=== PATIENT | male | born 1950 | race Caucasian/White ===

== ENCOUNTER 2016-04-22 07:30 | Inpatient (IN) | payer OTHER ==
[~2016-04-22] VITALS: Ht 193 cm; Wt 102.4 kg
[~2016-04-22 07:30] MED LIST: ALLO100T64 PO; CAPT25TA71 PO; DOCU-29 PO; FINA5TAB4 PO; OXYB5TAB PO; PROPANOLOL PO; SIMV20TA2 PO; TAMS0.4C2 PO
[2016-06-10 15:41] VITALS: BMI 28.9
[2016-06-10 19:00] VITALS: BP 166/75; PULSE 64; RESP 18
[2016-06-11] VITALS (31 sets, daily range): BP systolic 127–178; BP diastolic 70–106; PULSE 50–98; RESP 16–20; Ht 193 cm; Wt 102.4 kg
[2016-06-11] MEDS ORDERED: CEFAZOLIN 1 GM INJ ONE (07:00)
[2016-06-11] MEDS ORDERED: ACET1TAB40 PO (11:14)
[2016-06-11] MEDS ORDERED: AMLO-145 PO (11:14)
[2016-06-11] MEDS ORDERED: CEFAZOLIN 1 GM/50 ML (PMX) 50 ML IVPB SCH (11:30)
--- NOTE | 2016-06-11 12:56 | HPN ---
Date/Time of Note Date/Time of Note DATE: 06/11/16 TIME: 12:56 Interval H&P Admission Note Pt. seen H&P reviewed: No system changes KARMA SAEED MD Jun 11, 2016 12:56
[2016-06-11] MEDS ORDERED: NALOXONE (0.4 MG/ML) INJ IV PRN ×2 (13:00→14:30)
[2016-06-11] MEDS ORDERED: POLYMYXIN B 500000 UNIT INJ ONE (13:02)
[2016-06-11] MEDS ORDERED: BACITRACIN 50000 UNITS INJ ONE (13:03)
[2016-06-11] MEDS ORDERED: FENTAnyl 50 MCG/ML VIAL ONE (13:03)
[2016-06-11] MEDS ORDERED: MIDAZOLAM 1 MG/ML 2 ML INJ ONE (13:03)
[2016-06-11] MEDS ORDERED: morphine SULFATE/PF (10 MG/10 ML) INJ ONE (13:04)
[2016-06-11] MEDS ORDERED: TRANEXAMIC ACID 2,000 MG in SOD CHLORIDE 0.9% 100 ML IV ONE (14:00)
[2016-06-11] MEDS ORDERED: POLYMYXIN/BACITRACIN 1L IRRIG ONE (14:07)
[2016-06-11] MEDS ORDERED: BACITRACIN/POLYMYXIN 28.35 GM OINT TOP ONE (14:24)
[2016-06-11] MEDS ORDERED: MEPERIDINE 25 MG INJ IV PRN (14:30)
[2016-06-11] MEDS ORDERED: ONDANSETRON 4 MG INJ IV PRN ×2 (14:30→19:30)
[2016-06-11] MEDS ORDERED: DIPHENHYDRAMINE 50 MG INJ IV PRN (14:30)
[2016-06-11] MEDS ORDERED: FENTAnyl 50 MCG/ML VIAL IV PRN (14:30)
[2016-06-11] MEDS ORDERED: HYDROmorphONE (0.2 MG/ML) 10ML SYG IV PRN ×2 (14:30)
[2016-06-11] MEDS ORDERED: ETOMIDATE 20 MG INJ ONE (15:09)
[2016-06-11] MEDS ORDERED: PROPOFOL 20 ML ONE (15:09)
[2016-06-11] MEDS ORDERED: ROCURONIUM 50 MG INJ ONE (15:10)
[2016-06-11] MEDS ORDERED: LIDOCAINE 2% (SDV) 5 ML INJ ONE (15:10)
[2016-06-11] MEDS ORDERED: ONDANSETRON 4 MG INJ ONE (15:10)
[2016-06-11] MEDS: CEFAZOLIN 1 GM/50 ML (PMX) 50 ML IVPB SCH ×2 (15:39→22:42)
--- NOTE | 2016-06-11 18:48 | QN ---
Documentation Comment [id number] SUSAN TEJEDA MD Jun 11, 2016 18:48
[2016-06-11] MEDS ORDERED: morphine 10 MG INJ IM PRN (19:30)
[2016-06-11] MEDS: morphine 2 MG INJ IV PRN ×2 (19:37→23:24)
[2016-06-11] MEDS: ACETAMINOPHEN/CODEINE #3 TAB PO SCH (21:04)
[2016-06-12] VITALS: BP 161/97; PULSE 60; RESP 18
[2016-06-12 04:00] VITALS: BP 150/71; PULSE 83; RESP 22
[2016-06-12] MEDS: morphine 2 MG INJ IV PRN ×2 (04:04→11:22)
[2016-06-12 04:56] LABS: ADD SCAN DIFF NO
--- NOTE | 2016-06-12 05:03 | HP ---
DATE OF ADMISSION: 06/11/2016 HISTORY OF PRESENT ILLNESS: The patient is a 65-year-old male who was seen postop The patient under went right knee surgery and is admitted for further management. PAST MEDICAL HISTORY: The patient has a history of gout, hypertension, dyslipidemia, and BPH. ALLERGY HISTORY: NEGATIVE. FAMILY HISTORY: Negative. SOCIAL HISTORY: Positive for use of marijuana. MEDICATIONS AT HOME: 1. Tylenol with codeine. 2. Allopurinol. 3. Amlodipine. 4. Captopril. 5. Docusate sodium. 6. Proscar. 7. Oxybutynin. 8. Simvastatin. 9. Flomax. 10. Propranolol. REVIEW OF SYSTEMS: HEENT: Unremarkable. RESPIRATORY: Unremarkable. CARDIOVASCULAR: Unremarkable. ABDOMEN: Unremarkable. EXTREMITIES: Current pain. PHYSICAL EXAMINATION: GENERAL: The patient is awake, alert. VITAL SIGNS: Stable. Pulse 50, blood pressure 130/88. HEAD: Atraumatic, normocephalic. Pupils equal, reactive to light. NECK: Supple. No JVD. LUNGS: Clear. CARDIOVASCULAR: S1, S2 normal. ABDOMEN: Soft, nontender. Bowel sounds positive. No palpable mass or hepatosplenomegaly. EXTREMITIES: No cyanosis, clubbing, or edema. The patient has the dressing on the right knee noted . CENTRAL NERVOUS SYSTEM: The patient is awake, alert, moving both upper and lower extremities. LABORATORY DATA: From this admission are not available. IMPRESSION: 1. Right knee replacement. 2. Hypertension. 3. Benign prostatic hypertrophy. PLAN: To continue home medication and follow recommendation from Dr. Russ. DVT prophylaxis whe n stable. The patient will be having pain medication. Orders were done. Dictated By: SUSNA TEJEDA MD BS/NTS Conf#: [id number] DID#: [id number]
[2016-06-12 05:16] LABS: INR 1.08; PT RATIO 1.1
[2016-06-12 05:19] LABS: CREATININE 1.1 mg/dl (0.61-1.24)
[2016-06-12] MEDS: CEFAZOLIN 1 GM/50 ML (PMX) 50 ML IVPB SCH (06:21)
[2016-06-12] MEDS: HYDROmorphONE 1 MG/ML SYG IV PRN ×4 (06:42→21:34)
[2016-06-12 08:00] VITALS: BP 166/90; RESP 18
[2016-06-12] MEDS ORDERED: ENOXAPARIN 30 MG/0.3 ML SYG SC ONE (08:00)
[2016-06-12 09:00] LABS: BASOPHILS % 0.3 % (0.0-2.0); EOSINOPHILS # 0.1 10^3/ul (0.0-0.5); HEMATOCRIT 45.8 % (42.0-52.0); HEMOGLOBIN 15.4 g/dl (14.0-18.0); LYMPHOCYTES # 1.5 10^3/ul (0.8-2.9); LYMPHOCYTES % 13.4 % (15.0-51.0); MEAN CORPUSCULAR HEMOGLOBIN 30.4 pg (29.0-33.0); MEAN CORPUSCULAR HGB CONC 33.6 g/dl (32.0-37.0); MEAN CORPUSCULAR VOLUME 90.5 fl (82.0-101.0); MEAN PLATELET VOLUME 12.4 fl (7.4-10.4); MONOCYTE # 1.1 10^3/ul (0.3-0.9); MONOCYTES % 9.9 % (0.0-11.0); NEUTROPHIL # 8.2 10^3/ul (1.6-7.5); PLATELET COUNT 139 10^3/UL (140-415); RED BLOOD COUNT 5.06 10^6/ul (4.70-6.10); RED CELL DISTRIBUTION WIDTH 14.1 % (11.5-14.5)
[2016-06-12] MEDS: DOCUSATE SODIUM 100 MG CAP PO SCH (09:20)
[2016-06-12] MEDS: FINASTERIDE 5 MG TAB PO SCH (09:21)
[2016-06-12] MEDS: ALLOPURINOL 100 MG TAB PO SCH (09:21)
[2016-06-12] MEDS: AMLODIPINE 5 MG TAB PO SCH (09:21)
[2016-06-12] MEDS: TAMSULOSIN (SR) 0.4 MG CAP PO SCH (09:21)
[2016-06-12] MEDS: OXYBUTYNIN 5 MG TAB PO SCH (09:21)
[2016-06-12] MEDS: ACETAMINOPHEN/CODEINE #3 TAB PO SCH ×3 (09:26→20:48)
--- NOTE | 2016-06-12 14:14 | PN ---
Date/Time of Note Date/Time of Note DATE: 06/12/16 TIME: 14:13 Assessment/Plan VTE Prophylaxis VTE Prophylaxis Intervention: SCD's Lines/Catheters [facility] Saline Lock Urinary Cath still in place: Yes Reason Cath still needed: urinary retention Assessment/Plan Chief Complaint/Hosp Course 1. S/p Right knee replacement. 2. Hypertension. 3. Benign prostatic hypertrophy. 4. Morbid obesity Problems: Assessment/Plan 1. Physical therapy Subjective 24 Hr Interval Summary Constitutional: no complaints Exam/Review of Systems Vital Signs Vitals Vital Signs Date Time Temp Pulse Resp B/P Pulse Ox O2 Delivery O2 Flow Rate FiO2 06/12/16 08:00 98.7 66 18 166/90 97 06/12/16 04:00 Nasal Cannula 06/12/16 00:00 2.0 Intake and Output 06/11/16 06/11/16 06/12/16 15:00 23:00 07:00 Intake Total 1500 ml 350 ml 820 ml Output Total 220 ml 650 ml 1400 ml Balance 1280 ml -300 ml -580 ml Exam Constitutional: alert, oriented Psych: no complaints Head: normocephalic ENMT: nl external ears & nose Neck: supple Respiratory: clear to auscultation Cardiovascular: regular rate and rhythm Gastrointestinal: soft Genitourinary - Male: other (wagner) Results Result Diagram: 06/12/16 0434 06/12/16 0434 Results 24 hrs Laboratory Tests Test 06/12/16 04:34 White Blood Count 11.0 H Red Blood Count 5.06 Hemoglobin 15.4 Hematocrit 45.8 Mean Corpuscular Volume 90.5 Mean Corpuscular Hemoglobin 30.4 Mean Corpuscular Hemoglobin Concent 33.6 Red Cell Distribution Width 14.1 Platelet Count 139 L Mean Platelet Volume 12.4 H Neutrophils % 75.0 Lymphocytes % 13.4 L Monocytes % 9.9 Eosinophils % 1.0 Basophils % 0.3 Nucleated Red Blood Cells % 0.0 Neutrophils # 8.2 H Lymphocytes # 1.5 Monocytes # 1.1 H Eosinophils # 0.1 Basophils # 0.0 Nucleated Red Blood Cells # 0.0 Prothrombin Time 14.0 Prothrombin Time Ratio 1.1 INR International Normalized Ratio 1.08 Sodium Level 133 L Potassium Level 4.0 Chloride Level 100 Carbon Dioxide Level 25 Anion Gap 12 Blood Urea Nitrogen 13 Creatinine 1.10 Glucose Level 129 Calcium Level 9.0 Medications Medications Current Medications Naloxone HCl (Narcan) 0.2 mg Q2M PRN IV FOR RESP RATE 8 OR LESS; Start at 14:30 Acetaminophen/ Codeine Phosphate (Tylenol No.3) 1 tab TID PO Last administered on 06/12/16 09:26; Admin Dose 1 TAB; Start 06/11/16 at 21:00 Allopurinol (Zyloprim) 100 mg DAILY PO Last administered on 06/12/16 09:21; Admin Dose 100 MG; Start 06/12/16 at 09:00 Amlodipine Besylate (Norvasc) 5 mg DAILY PO Last administered on 06/12/16 09: 21; Admin Dose 5 MG; Start 06/12/16 at 09:00 Captopril (Capoten) 25 mg DAILY PO Last administered on 06/12/16 09:21; Admin Dose 25 MG; Start 06/12/16 at 09:00 Docusate Sodium (Colace) 100 mg DAILY PO Last administered on 06/12/16 09:20; Admin Dose 100 MG; Start 06/12/16 at 09:00 Finasteride (Proscar) 5 mg DAILY PO Last administered on 06/12/16 09:21; Admin Dose 5 MG; Start 06/12/16 at 09:00 Oxybutynin Chloride (Ditropan) 5 mg DAILY PO Last administered on 06/12/16 09: 21; Admin Dose 5 MG; Start 06/12/16 at 09:00 Tamsulosin HCl (Flomax) 0.4 mg DAILY PO Last administered on 06/12/16 09:21; Admin Dose 0.4 MG; Start 06/12/16 at 09:00 Ondansetron HCl (Zofran Inj) 4 mg Q4H PRN IV NAUSEA AND/OR VOMITING; Start at 19:30 Morphine Sulfate (morphine) 2 mg Q4H PRN IV PAIN LEVEL 6-10 Last administered on 06/12/16 11:22; Admin Dose 2 MG; Start 06/11/16 at 19:00 Clonidine (Catapres) 0.1 mg Q6H PRN PO SYSTOLIC BP [id number] Last administered on 06/11/16 21:50; Admin Dose 0.1 MG; Start 06/11/16 at 22:00 Hydromorphone HCl (Dilaudid) 0.5 mg Q2H PRN IV PAIN Last administered on t 09:33; Admin Dose 0.5 MG; Start 06/12/16 at 06:30 CARLOS HAMMOND Jun 12, 2016 14:14
[2016-06-12 15:20] LABS: ADD SCAN DIFF NO
[2016-06-12 15:36] LABS: BASOPHILS % 0.2 % (0.0-2.0); EOSINOPHILS % 0.3 % (0.0-7.0); HEMATOCRIT 44.3 % (42.0-52.0); HEMOGLOBIN 15.4 g/dl (14.0-18.0); LYMPHOCYTES % 8.7 % (15.0-51.0); MEAN CORPUSCULAR HEMOGLOBIN 30.9 pg (29.0-33.0); MEAN CORPUSCULAR HGB CONC 34.8 g/dl (32.0-37.0); MEAN PLATELET VOLUME 11.7 fl (7.4-10.4); MONOCYTES % 8.4 % (0.0-11.0); NEUTROPHIL # 9.7 10^3/ul (1.6-7.5); NEUTROPHILS % 81.9 % (39.0-77.0); PLATELET COUNT 126 10^3/UL (140-415); RED BLOOD COUNT 4.98 10^6/ul (4.70-6.10); RED CELL DISTRIBUTION WIDTH 13.8 % (11.5-14.5); WHITE BLOOD COUNT 11.8 10^3/ul (4.8-10.8)
--- NOTE | 2016-06-12 15:52 | OPR ---
DATE OF OPERATION: 06/11/2016 SURGEON: Karma Russ MD [employer] ME[employer]IC: ZENOBIA Shen ANESTHESIA: Spinal and general. PREOPERATIVE DIAGNOSIS: Severe right knee osteoarthritis. POSTOPERATIVE DIAGNOSIS: Severe right knee osteoarthritis. PROCEDURE PERFORMED: Right total knee replacement arthroplasty using [employer] components po sterior stabilized, size 8 Oxinium femur, a size 7 tibia, 9 mm liner, 26 mm patellar button, compon ents cemented with antibiotic cement. TOURNIQUET TIME: 60 minutes. ESTIMATED BLOOD LOSS: 20 mL. COMPLICATIONS: None. PROCEDURE: The patient taken to the operating room and spinal block given followed by general rachana cordero. Tourniquet applied to the right thigh. Right hip prepped and draped in usual sterile manner , leg exsanguinated with Esmarch bandage, tourniquet inflated to 300 mmHg. Anterior incision made, medial arthrotomy. Severe arthritis noted in all compartments without arthroplasty. ____Patella pr epared for a 26 mm button. Femur cut with the intramedullary guide to size 8 posterior stabilized f emur. The tibia was measured for a size 7. Appropriate cuts were made. A trial reduction was box ied out with ____ liner. Full extension was achieved. The knee was stable in extension and flexion . Adequate patellar tracking noted. The femoral components were brought in. Wound irrigated with pulsatile lavage. Antibiotic cement was used. Components cemented satisfactorily. Excess cement was removed. Tourniquet deflated. Hemostasis ascertained. Autotransfusion drain was used. Arthro esther closed with #2 FiberWire sutures, subcutaneous layer with #1 Vicryl sutures. Skin closed with christopher. Compression bandage applied. Tranexamic acid was used during the procedure. Patient tole rated the procedure well. Anesthetic reversed and taken to the recovery room in stable condition. Dictated By: KARMA SCOTT/SERGIO Conf#: [id number] DID#: [id number]
[2016-06-12 19:00] VITALS: BP 148/91; RESP 18
[2016-06-13] VITALS: BP 141/96; RESP 18
[2016-06-13] MEDS: HYDROmorphONE 1 MG/ML SYG IV PRN ×2 (01:51→08:19)
[2016-06-13 05:44] LABS: ADD SCAN DIFF NO
[2016-06-13 06:06] LABS: BASOPHILS % 0.1 % (0.0-2.0); EOSINOPHILS # 0.1 10^3/ul (0.0-0.5); EOSINOPHILS % 0.6 % (0.0-7.0); HEMATOCRIT 42.9 % (42.0-52.0); HEMOGLOBIN 14.5 g/dl (14.0-18.0); INR 1.14; LYMPHOCYTES # 1.2 10^3/ul (0.8-2.9); LYMPHOCYTES % 10.6 % (15.0-51.0); MEAN CORPUSCULAR HEMOGLOBIN 29.9 pg (29.0-33.0); MEAN CORPUSCULAR HGB CONC 33.8 g/dl (32.0-37.0); MEAN CORPUSCULAR VOLUME 88.5 fl (82.0-101.0); MEAN PLATELET VOLUME 12.5 fl (7.4-10.4); MONOCYTE # 1.1 10^3/ul (0.3-0.9); NEUTROPHIL # 8.8 10^3/ul (1.6-7.5); NEUTROPHILS % 78.3 % (39.0-77.0); PLATELET COUNT 124 10^3/UL (140-415); PROTIME 14.6 Sec (12.2-14.2); PT RATIO 1.1; RED BLOOD COUNT 4.85 10^6/ul (4.70-6.10); RED CELL DISTRIBUTION WIDTH 13.8 % (11.5-14.5); WHITE BLOOD COUNT 11.2 10^3/ul (4.8-10.8)
[2016-06-13 06:24] LABS: POTASSIUM 3.7 mmol/L (3.5-5.1)
[2016-06-13 06:27] LABS: CALCIUM 8.7 mg/dl (8.4-10.2); CREATININE 0.97 mg/dl (0.61-1.24)
[2016-06-13 07:59] VITALS: BP 136/88; RESP 20
[2016-06-13] MEDS: DOCUSATE SODIUM 100 MG CAP PO SCH (08:21)
[2016-06-13] MEDS: OXYBUTYNIN 5 MG TAB PO SCH (08:21)
[2016-06-13] MEDS: ALLOPURINOL 100 MG TAB PO SCH (08:22)
[2016-06-13] MEDS: FINASTERIDE 5 MG TAB PO SCH (08:22)
[2016-06-13] MEDS: TAMSULOSIN (SR) 0.4 MG CAP PO SCH (08:22)
[2016-06-13] MEDS: AMLODIPINE 5 MG TAB PO SCH (08:22)
[2016-06-13] MEDS: ACETAMINOPHEN/CODEINE #3 TAB PO SCH ×3 (10:12→20:03)
[2016-06-13] MEDS: ENOXAPARIN 40 MG/0.4 ML SYG SC SCH (10:21)
[2016-06-13] MEDS ORDERED: HYDROCODONE/APAP (10/325) TAB PO PRN (10:30)
[2016-06-13] MEDS: HYDROCODONE/APAP (10/325) TAB PO PRN ×2 (11:58→16:38)
--- NOTE | 2016-06-13 13:56 | PN ---
DATE: The patient is 2 days status post right total knee replacement. He is progressing well. He will be switching to oral medication. The drain is removed today. Compartments are soft, the wound is dry . Neurovascular status intact. The patient will continue with therapy. Anticip[facility]. Follow up appointment in 1 week. Dictated By: KARMA SCOTT/SERGIO Conf#: [id number] DID#: [id number]
--- NOTE | 2016-06-13 18:50 | PN ---
Date/Time of Note Date/Time of Note DATE: 06/13/16 TIME: 18:49 Assessment/Plan VTE Prophylaxis VTE Prophylaxis Intervention: other Lines/Catheters IV Catheter Type (from Nrs): Saline Lock Urinary Cath still in place: Yes Reason Cath still needed: other (indicate) Assessment/Plan Chief Complaint/Hosp Course s/p rt knee surgery htn plan per ortho Problems: Subjective 24 Hr Interval Summary Subjective hx not possible: other (feeling better) Exam/Review of Systems Vital Signs Vitals Vital Signs Date Time Temp Pulse Resp B/P Pulse Ox O2 Delivery O2 Flow Rate FiO2 06/13/16 07:59 98.1 91 20 136/88 95 06/12/16 21:15 Nasal Cannula 2.0 Intake and Output 06/12/16 06/12/16 06/13/16 14:59 22:59 06:59 Intake Total 700 ml 1550 ml Output Total 1100 ml 1560 ml Balance -400 ml -10 ml Exam Respiratory: clear to auscultation Cardiovascular: regular rate and rhythm Gastrointestinal: soft Genitourinary - Male: nl penis Musculoskeletal: nl extremities to inspection Results Result Diagram: 06/13/16 0450 06/13/16 0450 Results 24 hrs Laboratory Tests Test 06/13/16 04:50 White Blood Count 11.2 H Red Blood Count 4.85 Hemoglobin 14.5 Hematocrit 42.9 Mean Corpuscular Volume 88.5 Mean Corpuscular Hemoglobin 29.9 Mean Corpuscular Hemoglobin Concent 33.8 Red Cell Distribution Width 13.8 Platelet Count 124 L Mean Platelet Volume 12.5 H Neutrophils % 78.3 H Lymphocytes % 10.6 L Monocytes % 10.0 Eosinophils % 0.6 Basophils % 0.1 Nucleated Red Blood Cells % 0.0 Neutrophils # 8.8 H Lymphocytes # 1.2 Monocytes # 1.1 H Eosinophils # 0.1 Basophils # 0.0 Nucleated Red Blood Cells # 0.0 Prothrombin Time 14.6 H Prothrombin Time Ratio 1.1 INR International Normalized Ratio 1.14 Sodium Level 132 L Potassium Level 3.7 Chloride Level 95 L Carbon Dioxide Level 27 Anion Gap 14 Blood Urea Nitrogen 14 Creatinine 0.97 Glucose Level 124 Calcium Level 8.7 Medications Medications Current Medications Naloxone HCl (Narcan) 0.2 mg Q2M PRN IV FOR RESP RATE 8 OR LESS; Start at 14:30 Acetaminophen/ Codeine Phosphate (Tylenol No.3) 1 tab TID PO Last administered on 06/13/16 14:19; Admin Dose 1 TAB; Start 06/11/16 at 21:00 Allopurinol (Zyloprim) 100 mg DAILY PO Last administered on 06/13/16 08:22; Admin Dose 100 MG; Start 06/12/16 at 09:00 Amlodipine Besylate (Norvasc) 5 mg DAILY PO Last administered on 06/13/16 08: 22; Admin Dose 5 MG; Start 06/12/16 at 09:00 Captopril (Capoten) 25 mg DAILY PO Last administered on 06/13/16 08:22; Admin Dose 25 MG; Start 06/12/16 at 09:00 Docusate Sodium (Colace) 100 mg DAILY PO Last administered on 06/13/16 08:21; Admin Dose 100 MG; Start 06/12/16 at 09:00 Finasteride (Proscar) 5 mg DAILY PO Last administered on 06/13/16 08:22; Admin Dose 5 MG; Start 06/12/16 at 09:00 Oxybutynin Chloride (Ditropan) 5 mg DAILY PO Last administered on 06/13/16 08: 21; Admin Dose 5 MG; Start 06/12/16 at 09:00 Tamsulosin HCl (Flomax) 0.4 mg DAILY PO Last administered on 06/13/16 08:22; Admin Dose 0.4 MG; Start 06/12/16 at 09:00 Ondansetron HCl (Zofran Inj) 4 mg Q4H PRN IV NAUSEA AND/OR VOMITING; Start at 19:30 Morphine Sulfate (morphine) 2 mg Q4H PRN IV PAIN LEVEL 6-10 Last administered on 06/12/16 11:22; Admin Dose 2 MG; Start 06/11/16 at 19:00 Clonidine (Catapres) 0.1 mg Q6H PRN PO SYSTOLIC BP [id number] Last administered on 06/11/16 21:50; Admin Dose 0.1 MG; Start 06/11/16 at 22:00 Hydromorphone HCl (Dilaudid) 0.5 mg Q2H PRN IV PAIN Last administered on 08:19; Admin Dose 0.5 MG; Start 06/12/16 at 06:30 Enoxaparin Sodium (Lovenox) 40 mg DAILY SC Last administered on 06/13/16 10:21 ; Admin Dose 40 MG; Start 06/13/16 at 09:00 Acetaminophen/ Hydrocodone Bitart ([place] (10/325)) 1 tab Q4H PRN PO PAIN LEVEL 1-5; Start 06/13/16 at 10:30 Acetaminophen/ Hydrocodone Bitart ([place] (10/325)) 2 tab Q4H PRN PO PAIN LEVEL 6-10 Last administered on 06/13/16 16:38; Admin Dose 2 TAB; Start 06/13/16 at 10:30 SUSAN TEJEDA MD Jun 13, 2016 18:50
[2016-06-13 20:22] VITALS: BP 130/82; RESP 19
[2016-06-14] MEDS: HYDROmorphONE 1 MG/ML SYG IV PRN (00:42)
[2016-06-14 05:56] LABS: ADD SCAN DIFF NO
[2016-06-14 05:59] LABS: BASOPHILS % 0.1 % (0.0-2.0); EOSINOPHILS # 0.4 10^3/ul (0.0-0.5); EOSINOPHILS % 4.6 % (0.0-7.0); HEMATOCRIT 41.6 % (42.0-52.0); HEMOGLOBIN 13.9 g/dl (14.0-18.0); LYMPHOCYTES # 1.3 10^3/ul (0.8-2.9); LYMPHOCYTES % 15.1 % (15.0-51.0); MEAN CORPUSCULAR HEMOGLOBIN 29.9 pg (29.0-33.0); MEAN CORPUSCULAR HGB CONC 33.4 g/dl (32.0-37.0); MEAN CORPUSCULAR VOLUME 89.5 fl (82.0-101.0); MEAN PLATELET VOLUME 11.9 fl (7.4-10.4); MONOCYTE # 0.8 10^3/ul (0.3-0.9); MONOCYTES % 10.2 % (0.0-11.0); NEUTROPHIL # 5.8 10^3/ul (1.6-7.5); NEUTROPHILS % 69.6 % (39.0-77.0); PLATELET COUNT 124 10^3/UL (140-415); RED BLOOD COUNT 4.65 10^6/ul (4.70-6.10); WHITE BLOOD COUNT 8.3 10^3/ul (4.8-10.8)
[2016-06-14 06:14] LABS: INR 1.08; PT RATIO 1.1
[2016-06-14 06:29] LABS: CREATININE 1.19 mg/dl (0.61-1.24)
[2016-06-14 06:30] LABS: CALCIUM 8.7 mg/dl (8.4-10.2)
[2016-06-14 08:06] VITALS: BP 141/86; RESP 18
[2016-06-14] MEDS: DOCUSATE SODIUM 100 MG CAP PO SCH (09:59)
[2016-06-14] MEDS: FINASTERIDE 5 MG TAB PO SCH (09:59)
[2016-06-14] MEDS: TAMSULOSIN (SR) 0.4 MG CAP PO SCH (09:59)
[2016-06-14] MEDS: AMLODIPINE 5 MG TAB PO SCH (09:59)
[2016-06-14] MEDS: ALLOPURINOL 100 MG TAB PO SCH (09:59)
[2016-06-14] MEDS: OXYBUTYNIN 5 MG TAB PO SCH (10:00)
[2016-06-14] MEDS: ENOXAPARIN 40 MG/0.4 ML SYG SC SCH (10:01)
[2016-06-14] MEDS: ACETAMINOPHEN/CODEINE #3 TAB PO SCH ×3 (10:03→20:44)
[2016-06-14] MEDS: HYDROCODONE/APAP (10/325) TAB PO PRN ×2 (15:18→19:32)
--- NOTE | 2016-06-14 18:14 | PN ---
Date/Time of Note Date/Time of Note DATE: 06/14/16 TIME: 18:09 Assessment/Plan VTE Prophylaxis VTE Prophylaxis Intervention: other Lines/Catheters [facility] Saline Lock Urinary Cath still in place: No Assessment/Plan Chief Complaint/Hosp Course s/p rt knee surgery htn hyponatremia plan per ortho snf soon Problems: Subjective 24 Hr Interval Summary Respiratory: no complaints Cardiovascular: no complaints Gastrointestinal: no complaints Exam/Review of Systems Vital Signs Vitals Vital Signs Date Time Temp Pulse Resp B/P Pulse Ox O2 Delivery O2 Flow Rate FiO2 06/14/16 08:06 98.0 95 18 141/86 95 06/14/16 08:00 Nasal Cannula 2.0 Intake and Output 06/13/16 06/13/16 06/14/16 15:00 23:00 07:00 Intake Total 700 ml 240 ml Output Total 950 ml 1200 ml Balance -250 ml -960 ml Exam Respiratory: clear to auscultation Cardiovascular: regular rate and rhythm Gastrointestinal: soft Musculoskeletal: nl extremities to inspection Extremities: normal pulses Results Result Diagram: 06/14/16 0516 06/14/16 0510 Results 24 hrs Laboratory Tests Test 06/14/16 05:10 06/14/16 05:16 Prothrombin Time 14.0 Prothrombin Time Ratio 1.1 INR International Normalized Ratio 1.08 Sodium Level 134 L Potassium Level 4.0 Chloride Level 93 L Carbon Dioxide Level 31 Anion Gap 14 Blood Urea Nitrogen 17 Creatinine 1.19 Glucose Level 115 Calcium Level 8.7 White Blood Count 8.3 # Red Blood Count 4.65 L Hemoglobin 13.9 L Hematocrit 41.6 L Mean Corpuscular Volume 89.5 Mean Corpuscular Hemoglobin 29.9 Mean Corpuscular Hemoglobin Concent 33.4 Red Cell Distribution Width 14.0 Platelet Count 124 L Mean Platelet Volume 11.9 H Neutrophils % 69.6 Lymphocytes % 15.1 Monocytes % 10.2 Eosinophils % 4.6 Basophils % 0.1 Nucleated Red Blood Cells % 0.0 Neutrophils # 5.8 Lymphocytes # 1.3 Monocytes # 0.8 Eosinophils # 0.4 Basophils # 0.0 Nucleated Red Blood Cells # 0.0 Medications Medications Current Medications Naloxone HCl (Narcan) 0.2 mg Q2M PRN IV FOR RESP RATE 8 OR LESS; Start at 14:30 Acetaminophen/ Codeine Phosphate (Tylenol No.3) 1 tab TID PO Last administered on 06/14/16 13:45; Admin Dose 1 TAB; Start 06/11/16 at 21:00 Allopurinol (Zyloprim) 100 mg DAILY PO Last administered on 06/14/16 09:59; Admin Dose 100 MG; Start 06/12/16 at 09:00 Amlodipine Besylate (Norvasc) 5 mg DAILY PO Last administered on 06/14/16 09:59 ; Admin Dose 5 MG; Start 06/12/16 at 09:00 Captopril (Capoten) 25 mg DAILY PO Last administered on 06/14/16 10:00; Admin Dose 25 MG; Start 06/12/16 at 09:00 Docusate Sodium (Colace) 100 mg DAILY PO Last administered on 06/14/16 09:59; Admin Dose 100 MG; Start 06/12/16 at 09:00 Finasteride (Proscar) 5 mg DAILY PO Last administered on 06/14/16 09:59; Admin Dose 5 MG; Start 06/12/16 at 09:00 Oxybutynin Chloride (Ditropan) 5 mg DAILY PO Last administered on 06/14/16 10: 00; Admin Dose 5 MG; Start 06/12/16 at 09:00 Tamsulosin HCl (Flomax) 0.4 mg DAILY PO Last administered on 06/14/16 09:59; Admin Dose 0.4 MG; Start 06/12/16 at 09:00 Ondansetron HCl (Zofran Inj) 4 mg Q4H PRN IV NAUSEA AND/OR VOMITING; Start at 19:30 Morphine Sulfate (morphine) 2 mg Q4H PRN IV PAIN LEVEL 6-10 Last administered on 06/12/16 11:22; Admin Dose 2 MG; Start 06/11/16 at 19:00 Clonidine (Catapres) 0.1 mg Q6H PRN PO SYSTOLIC BP [id number] Last administered on 06/11/16 21:50; Admin Dose 0.1 MG; Start 06/11/16 at 22:00 Hydromorphone HCl (Dilaudid) 0.5 mg Q2H PRN IV PAIN Last administered on 00:42; Admin Dose 0.5 MG; Start 06/12/16 at 06:30 Enoxaparin Sodium (Lovenox) 40 mg DAILY SC Last administered on 06/14/16 10:01 ; Admin Dose 40 MG; Start 06/13/16 at 09:00 Acetaminophen/ Hydrocodone Bitart ([place] (10/325)) 1 tab Q4H PRN PO PAIN LEVEL 1-5; Start 06/13/16 at 10:30 Acetaminophen/ Hydrocodone Bitart ([place] (10/325)) 2 tab Q4H PRN PO PAIN LEVEL 6-10 Last administered on 06/14/16 15:18; Admin Dose 2 TAB; Start 06/13/16 at 10 :30 SUSAN TEJEDA MD June 14, 2016 18:14
[2016-06-14 19:00] VITALS: BP 128/78; RESP 18
[2016-06-15 05:56] LABS: ADD SCAN DIFF NO
[2016-06-15 06:04] LABS: INR 1.11; PROTIME 14.3 Sec (12.2-14.2); PT RATIO 1.1
[2016-06-15 06:07] LABS: BASOPHILS % 0.4 % (0.0-2.0); EOSINOPHILS # 0.6 10^3/ul (0.0-0.5); EOSINOPHILS % 7.8 % (0.0-7.0); HEMATOCRIT 38.8 % (42.0-52.0); HEMOGLOBIN 13.3 g/dl (14.0-18.0); LYMPHOCYTES # 1.5 10^3/ul (0.8-2.9); LYMPHOCYTES % 21.4 % (15.0-51.0); MEAN CORPUSCULAR HEMOGLOBIN 30.8 pg (29.0-33.0); MEAN CORPUSCULAR HGB CONC 34.3 g/dl (32.0-37.0); MEAN CORPUSCULAR VOLUME 89.8 fl (82.0-101.0); MEAN PLATELET VOLUME 11.6 fl (7.4-10.4); MONOCYTE # 0.8 10^3/ul (0.3-0.9); MONOCYTES % 11.2 % (0.0-11.0); NEUTROPHIL # 4.2 10^3/ul (1.6-7.5); NEUTROPHILS % 58.9 % (39.0-77.0); PLATELET COUNT 139 10^3/UL (140-415); RED BLOOD COUNT 4.32 10^6/ul (4.70-6.10); RED CELL DISTRIBUTION WIDTH 13.9 % (11.5-14.5); WHITE BLOOD COUNT 7.1 10^3/ul (4.8-10.8)
[2016-06-15 06:14] LABS: CALCIUM 8.7 mg/dl (8.4-10.2); CREATININE 1.17 mg/dl (0.61-1.24)
[2016-06-15 08:09] VITALS: BP 140/83; RESP 18
[2016-06-15] MEDS: FINASTERIDE 5 MG TAB PO SCH (08:59)
[2016-06-15] MEDS: OXYBUTYNIN 5 MG TAB PO SCH (08:59)
[2016-06-15] MEDS: ALLOPURINOL 100 MG TAB PO SCH (08:59)
[2016-06-15] MEDS: TAMSULOSIN (SR) 0.4 MG CAP PO SCH (08:59)
[2016-06-15] MEDS: ACETAMINOPHEN/CODEINE #3 TAB PO SCH ×3 (08:59→21:07)
[2016-06-15] MEDS: DOCUSATE SODIUM 100 MG CAP PO SCH (09:00)
[2016-06-15] MEDS: AMLODIPINE 5 MG TAB PO SCH (09:00)
[2016-06-15] MEDS: ENOXAPARIN 40 MG/0.4 ML SYG SC SCH (09:05)
--- NOTE | 2016-06-15 19:19 | PDOCDIS ---
Discharge Instructions CONDITION Patient Condition: Stable HOME CARE INSTRUCTIONS: Special Diet: regular ACTIVITY: Activity Restrictions: Slowly Increase Activity FOLLOW UP/APPOINTMENTS Appointments f/u dr salgado 1 wk see pcp at [facility] SUSAN TEJEDA MD June 15, 2016 19:19
[2016-06-15 19:21] VITALS: BP 133/81; RESP 18
--- NOTE | 2016-06-15 19:53 | PN ---
Date/Time of Note Date/Time of Note DATE: 06/15/16 TIME: 19:52 Assessment/Plan VTE Prophylaxis VTE Prophylaxis Intervention: other Lines/Catheters IV Catheter Type (from Nrs): Saline Lock Urinary Cath still in place: No Assessment/Plan Chief Complaint/Hosp Course s/p rt knee surgery htn hyponatremia observe plan per ortho snf soon Problems: Subjective 24 Hr Interval Summary Cardiovascular: no complaints Gastrointestinal: no complaints Exam/Review of Systems Vital Signs Vitals Vital Signs Date Time Temp Pulse Resp B/P Pulse Ox O2 Delivery O2 Flow Rate FiO2 06/15/16 08:09 98.1 92 18 140/83 97 06/14/16 08:00 Nasal Cannula 2.0 Intake and Output 06/14/16 06/14/16 06/15/16 15:00 23:00 07:00 Intake Total 800 ml 420 ml Output Total 700 ml 500 ml Balance 100 ml -80 ml Exam Respiratory: clear to auscultation Cardiovascular: regular rate and rhythm Gastrointestinal: soft Musculoskeletal: No joint tenderness Results Result Diagram: 06/15/16 0445 06/15/16 0445 Results 24 hrs Laboratory Tests Test 06/15/16 04:45 White Blood Count 7.1 Red Blood Count 4.32 L Hemoglobin 13.3 L Hematocrit 38.8 L Mean Corpuscular Volume 89.8 Mean Corpuscular Hemoglobin 30.8 Mean Corpuscular Hemoglobin Concent 34.3 Red Cell Distribution Width 13.9 Platelet Count 139 L Mean Platelet Volume 11.6 H Neutrophils % 58.9 Lymphocytes % 21.4 Monocytes % 11.2 H Eosinophils % 7.8 H Basophils % 0.4 Nucleated Red Blood Cells % 0.0 Neutrophils # 4.2 Lymphocytes # 1.5 Monocytes # 0.8 Eosinophils # 0.6 H Basophils # 0.0 Nucleated Red Blood Cells # 0.0 Prothrombin Time 14.3 H Prothrombin Time Ratio 1.1 INR International Normalized Ratio 1.11 Sodium Level 132 L Potassium Level 4.0 Chloride Level 96 L Carbon Dioxide Level 31 Anion Gap 9 # Blood Urea Nitrogen 21 H Creatinine 1.17 Glucose Level 132 Calcium Level 8.7 Medications Medications Current Medications Naloxone HCl (Narcan) 0.2 mg Q2M PRN IV FOR RESP RATE 8 OR LESS; Start at 14:30 Acetaminophen/ Codeine Phosphate (Tylenol No.3) 1 tab TID PO Last administered on 06/15/16 12:18; Admin Dose 1 TAB; Start 06/11/16 at 21:00 Allopurinol (Zyloprim) 100 mg DAILY PO Last administered on 06/15/16 08:59; Admin Dose 100 MG; Start 06/12/16 at 09:00 Amlodipine Besylate (Norvasc) 5 mg DAILY PO Last administered on 06/15/16 09:00 ; Admin Dose 5 MG; Start 06/12/16 at 09:00 Captopril (Capoten) 25 mg DAILY PO Last administered on 06/15/16 09:02; Admin Dose 25 MG; Start 06/12/16 at 09:00 Docusate Sodium (Colace) 100 mg DAILY PO Last administered on 06/15/16 09:00; Admin Dose 100 MG; Start 06/12/16 at 09:00 Finasteride (Proscar) 5 mg DAILY PO Last administered on 06/15/16 08:59; Admin Dose 5 MG; Start 06/12/16 at 09:00 Oxybutynin Chloride (Ditropan) 5 mg DAILY PO Last administered on 06/15/16 08: 59; Admin Dose 5 MG; Start 06/12/16 at 09:00 Tamsulosin HCl (Flomax) 0.4 mg DAILY PO Last administered on 06/15/16 08:59; Admin Dose 0.4 MG; Start 06/12/16 at 09:00 Ondansetron HCl (Zofran Inj) 4 mg Q4H PRN IV NAUSEA AND/OR VOMITING; Start at 19:30 Morphine Sulfate (morphine) 2 mg Q4H PRN IV PAIN LEVEL 6-10 Last administered on 06/12/16 11:22; Admin Dose 2 MG; Start 06/11/16 at 19:00 Clonidine (Catapres) 0.1 mg Q6H PRN PO SYSTOLIC BP [id number] Last administered on 06/11/16 21:50; Admin Dose 0.1 MG; Start 06/11/16 at 22:00 Hydromorphone HCl (Dilaudid) 0.5 mg Q2H PRN IV PAIN Last administered on 00:42; Admin Dose 0.5 MG; Start 06/12/16 at 06:30 Enoxaparin Sodium (Lovenox) 40 mg DAILY SC Last administered on 06/15/16 09:05 ; Admin Dose 40 MG; Start 06/13/16 at 09:00 Acetaminophen/ Hydrocodone Bitart ([place] (10/325)) 1 tab Q4H PRN PO PAIN LEVEL 1-5; Start 06/13/16 at 10:30 Acetaminophen/ Hydrocodone Bitart ([place] (10/325)) 2 tab Q4H PRN PO PAIN LEVEL 6-10 Last administered on 06/14/16 19:32; Admin Dose 2 TAB; Start 06/13/16 at 10 :30 Polyethylene Glycol (Miralax) 17 gm DAILY PO ; Start 06/15/16 at 20:00 Bisacodyl (Dulcolax) 10 mg BID PRN PO CONSTIPATION; Start 06/15/16 at 20:00 SUSAN TEJEDA MD June 15, 2016 19:53
[2016-06-15] MEDS ORDERED: BISACODYL (EC) 5 MG TAB PO PRN (20:00)
[2016-06-15] MEDS: POLYETHYLENE GLYCOL 17 GM PACKET PO SCH (21:08)
[2016-06-15] MEDS: HYDROCODONE/APAP (10/325) TAB PO PRN (22:52)
[2016-06-16] MEDS: HYDROCODONE/APAP (10/325) TAB PO PRN (03:57)
[2016-06-16 05:11] LABS: ADD SCAN DIFF NO
[2016-06-16 05:27] LABS: BASOPHILS % 0.3 % (0.0-2.0); EOSINOPHILS # 0.6 10^3/ul (0.0-0.5); EOSINOPHILS % 9.4 % (0.0-7.0); HEMATOCRIT 38.5 % (42.0-52.0); HEMOGLOBIN 13.1 g/dl (14.0-18.0); LYMPHOCYTES # 1.6 10^3/ul (0.8-2.9); LYMPHOCYTES % 22.8 % (15.0-51.0); MEAN CORPUSCULAR HEMOGLOBIN 30.6 pg (29.0-33.0); MEAN PLATELET VOLUME 11.9 fl (7.4-10.4); MONOCYTE # 0.7 10^3/ul (0.3-0.9); MONOCYTES % 9.6 % (0.0-11.0); NEUTROPHIL # 3.9 10^3/ul (1.6-7.5); NEUTROPHILS % 57.6 % (39.0-77.0); PLATELET COUNT 174 10^3/UL (140-415); RED BLOOD COUNT 4.28 10^6/ul (4.70-6.10); RED CELL DISTRIBUTION WIDTH 13.9 % (11.5-14.5); WHITE BLOOD COUNT 6.8 10^3/ul (4.8-10.8)
[2016-06-16 05:28] LABS: CALCIUM 8.9 mg/dl (8.4-10.2); CREATININE 1.07 mg/dl (0.61-1.24)
[2016-06-16 05:45] LABS: INR 0.94; PROTIME 12.6 Sec (12.2-14.2)
[2016-06-16 08:12] VITALS: BP 127/86; RESP 18
[2016-06-16] MEDS: ACETAMINOPHEN/CODEINE #3 TAB PO SCH ×2 (08:33→12:44)
[2016-06-16] MEDS: ALLOPURINOL 100 MG TAB PO SCH (08:33)
[2016-06-16] MEDS: TAMSULOSIN (SR) 0.4 MG CAP PO SCH (08:33)
[2016-06-16] MEDS: FINASTERIDE 5 MG TAB PO SCH (08:33)
[2016-06-16] MEDS: POLYETHYLENE GLYCOL 17 GM PACKET PO SCH (08:33)
[2016-06-16] MEDS: DOCUSATE SODIUM 100 MG CAP PO SCH (08:33)
[2016-06-16] MEDS: OXYBUTYNIN 5 MG TAB PO SCH (08:33)
[2016-06-16] MEDS: AMLODIPINE 5 MG TAB PO SCH (08:34)
[2016-06-16] MEDS: ENOXAPARIN 40 MG/0.4 ML SYG SC SCH (08:38)
== END 2016-06-16 13:09 | DRG 469 ==
LOC: REC 06-11 08:34 → MS1 06-11 16:45
PROVIDERS: ADMIT Specialist; ATTEND Specialist
PROC: 0SRC0J9 Replacement of Right Knee Joint with Synthetic Substitute, Cemented, Open Approach (ICD-10-PCS; principal; 2016-06-11 12:30)
DX: M17.11 Unilateral primary osteoarthritis, right knee (principal); I46.9 Cardiac arrest, cause unspecified; E87.1 Hypo-osmolality and hyponatremia; E66.01 Morbid (severe) obesity due to excess calories; I10 Essential (primary) hypertension; Z68.27 Body mass index [BMI] 27.0-27.9, adult; N40.0 Benign prostatic hyperplasia without lower urinary tract symptoms; E78.5 Hyperlipidemia, unspecified; I25.10 Atherosclerotic heart disease of native coronary artery without angina pectoris; I25.2 Old myocardial infarction; Z98.61 Coronary angioplasty status; F17.210 Nicotine dependence, cigarettes, uncomplicated
CPT/HCPCS: 80048; 85025; 85610; 87086; 88304; 88311; 97110; 97116; 97162; 97530; J0690; J1170; J1650; J2250; J2270; J2274; J2405; J3010

== ENCOUNTER → 2016-10-21 | Outpatient (CLI) | payer OTHER ==
[~2016-10-21] MED LIST changes: +ACET1TAB40 PO; +AMLO-145 PO; +IOHEXOL 300MG/ML 30 ML BTL ONE
--- NOTE | 2016-10-21 14:54 | RADRPT ---
PROCEDURE: Cholecystostomy removal CLINICAL INDICATION: Acute cholecystitis Fluoroscopy time: 0.1 minute TECHNIQUE: The patient's indwelling cholecystostomy was prepped and draped in the usual sterile manner. Several attempts were made to instill contrast through the catheter, all of which were unsuccessful. After a discussion with Dr. Herrera, the external portion of the catheter was cut and the catheter was remov ed. A sterile dressing was applied. The patient tolerated the procedure well. COMPARISON: None FINDINGS: Clogged cholecystostomy. RPTAT: [facility] IMPRESSION: Successful removal of a clotted cholecystostomy which has been in place since 07/05/2016. No leakage was identified after removal. These findings were discussed with Deepak Camacho over the phone on 10/21/2016 at the time of the p rocedure . Physician Herbert Date Time Electronically viewed and signed by Physician Herbert on 10/21/2016 14:53 /
== END | disposition home or self-care (01) ==
LOC: RAD 13:28
PROVIDERS: ATTEND Surgery Surgical Oncology
DX: K80.80 Other cholelithiasis without obstruction (principal)
CPT/HCPCS: 36589; Q9967

== ENCOUNTER → 2016-11-22 | Outpatient (CLI) | payer OTHER ==
[~2016-11-22] MED LIST changes: -IOHEXOL 300MG/ML 30 ML BTL ONE
== END | disposition home or self-care (01) ==
LOC: NUC 11:45
PROVIDERS: ATTEND Surgery Surgical Oncology
DX: K80.80 Other cholelithiasis without obstruction (principal)

== ENCOUNTER → 2016-11-24 | Outpatient (CLI) | payer OTHER ==
--- NOTE | 2016-11-24 15:04 | RADRPT ---
PROCEDURE: HIDA scan CLINICAL INDICATION: 65 -year-old patient and gallstones. TECHNIQUE: Following the intravenous injection of 8.5 mCi of Tc-99m mebrofenin, multiple images of the abdomen were obtained up to 60-minutes post injection. COMPARISON: No prior HIDA scans. FINDINGS: The liver is promptly visualized, demonstrates homogeneous distribution of radionuclide. There is visualization of the common bile duct and gastrointestinal activity within normal time. The gallbladder is not visualized up to 3 hours post injection of radiotracer. IMPRESSION: 1. Gallbladder is not visualized up to 3 hours post injection of radiotracer suggestive of acute cho lecystitis. 2. No scintigraphic evidence to suggest the presence of common bile duct obstruction. RPTAT: [facility] Physician Gil Date Time Electronically viewed and signed by Physician Gil on 11/24/2016 15:04 /
== END | disposition home or self-care (01) ==
LOC: NUC 10:08
PROVIDERS: ATTEND Surgery Surgical Oncology
DX: K80.80 Other cholelithiasis without obstruction (principal)
CPT/HCPCS: 78226; A9537